=== PATIENT | male | born 1955 | race Two or more races ===

== ENCOUNTER 2017-02-17 00:44 | Emergency (ER) | payer MEDICAID, OTHER ==
[~2017-02-17] VITALS: Ht 170.2 cm; Wt 86.2 kg
[2017-02-17] MEDS ORDERED: SODIUM CHLORIDE 0.9% 1,000 ML IV ONE (00:49)
[2017-02-17 00:51] VITALS: BP 131/93
[2017-02-17 01:22] LABS: Basophils # (auto) 0 uL; Eosinophils # (auto) 0 uL; Hemoglobin 16.8 g/dL (13.5-17.5); Lymphocytes # (auto) 1.5 uL; Mean Corpuscular Hemoglobin 29.8 pg (28.0-32.0); Mean Corpuscular Hgb Conc. 33.6 g/dL (32.0-36.0); Mean Corpuscular Volume 88.6 fL (80.0-100.0); Mean Platelet Volume 8.3 fL (7.4-10.4); Monocytes # (auto) 0.4 uL; Monocytes % (auto) 4.5 % (0.0-12.0); Neutrophils # (auto) 7.3 uL; Neutrophils % (auto) 79.5 % (37.0-80.0); Platelet Count (auto) 319 10^3/uL (140-450); White Blood Cell 9.2 10^3/uL (4.4-10.8)
[2017-02-17 01:30] LABS: Albumin 4.3 g/dL (3.4-5.0); BUN/Creatinine Ratio 22.9; Potassium 4.5 mmol/L (3.5-5.1)
[2017-02-17 01:32] LABS: Bilirubin, Total 0.8 mg/dL (0.2-1.0)
[2017-02-17 03:46] LABS: Urine Bilirubin Negative (Negative); Urine Blood Negative /uL (Negative); Urine Color Yellow (Yellow); Urine Glucose Normal (Normal); Urine Mucus FEW (None Seen); Urine Nitrite Negative (Negative); Urine RBC 1 /hpf (0 - 3); Urine Urobilinogen Normal (Negative)
[2017-02-17 03:47] LABS: Urine Ketone 2+ (Negative)
== END 2017-02-17 04:27 | disposition left against medical advice (07) ==
LOC: ER 00:44
DX: R11.2 Nausea with vomiting, unspecified (principal); R19.7 Diarrhea, unspecified; Z53.21 Procedure and treatment not carried out due to patient leaving prior to being seen by health care provider
CPT/HCPCS: 36415; 80053; 81001; 85025

== ENCOUNTER 2020-07-02 06:14 | Inpatient (IN) | payer OTHER ==
[~2020-07-02] VITALS: Ht 170.2 cm; Wt 88.0 kg
[~2020-07-02 06:14] MED LIST: ALEN1TAB32 PO; CALC1TAB53 PO; SIMV10TA84 PO
[2020-07-02] MEDS ORDERED: LIDOCAINE W/ EPINEPHRINE 1 % INJ 30ML ONE (07:03)
[2020-07-02] MEDS ORDERED: BUPIVACAINE 0.25% INJ 50ML VIAL ONE (07:03)
[2020-07-02] MEDS ORDERED: cefOXitin 2GM/100ML 100 ML IV ONE (07:50)
[2020-07-02] MEDS ORDERED: LIDOCAINE 1% (LOCAL ANESTH.) PF 5ml SDV ONE (07:54)
[2020-07-02] MEDS ORDERED: SUCCINYLCHOLINE CHLORIDE 20 MG/ML 10ML VIAL IV ONE (07:55)
[2020-07-02] MEDS ORDERED: MIDAZOLAM HCL 1MG/1ML-2 ML VIAL ONE ×2 (08:00→11:36)
[2020-07-02] MEDS ORDERED: METOCLOPRAMIDE HCL 5MG/ml INJ 2ml VIAL ONE ×2 (08:00→11:38)
[2020-07-02] MEDS ORDERED: ETOMIDATE (2MG/ML) 20ML VIAL IV ONE ×2 (08:03→11:41)
[2020-07-02] MEDS ORDERED: ROCURONIUM 10MG/ML 10ML VIAL IV ONE ×3 (08:04→11:38)
[2020-07-02] MEDS ORDERED: LABETALOL HCL 5 MG/ML ML 20ML VIAL IV ONE (08:12)
[2020-07-02] MEDS ORDERED: fentaNYL CITRATE 100 MCG/2 ML VL ONE ×2 (08:13→11:55)
[2020-07-02] MEDS ORDERED: HYDROmorphone HCL 2 MG/ML VL IV PRN ×2 (08:15→10:45)
[2020-07-02] MEDS ORDERED: ONDANSETRON HCL 4 MG/2 ML VIAL IV PRN ×2 (08:15→10:45)
[2020-07-02] MEDS ORDERED: hydrALAZINE HCL 20 MG/ML VL IV PRN (08:15)
[2020-07-02] MEDS ORDERED: NALOXONE HCL 0.4 MG/ML VIAL IV PRN (08:15)
[2020-07-02] MEDS ORDERED: MEPERIDINE HCL (25 MG/ML) 1ML VIAL ONE ×2 (10:15→12:21)
[2020-07-02] MEDS ORDERED: GLYCOPYRROLATE 0.2 MG/ML 1ML VIAL ONE (10:37)
[2020-07-02] MEDS ORDERED: NEOSTIGMINE 1 MG/ML INJ (10mg/10ML VIAL) ONE (10:37)
[2020-07-02] MEDS ORDERED: NITROGLYCERIN 0.4 MG SL TAB SL PRN (10:45)
[2020-07-02] MEDS ORDERED: diphenhdrAMINE HCL 50 MG/1 ML VL IV PRN (10:45)
[2020-07-02] MEDS ORDERED: MORPHINE SULF INJ 2 MG/ML SYRINGE 1ML IV PRN (10:45)
[2020-07-02 11:04] LABS: Calcium 8.3 mg/dL (8.5-10.1); Potassium 3.5 mmol/L (3.5-5.1)
[2020-07-02] MEDS: HYDROmorphone HCL 2 MG/ML VL IV PRN ×2 (11:15→11:30)
[2020-07-02] MEDS ORDERED: hydrALAZINE HCL 20 MG/ML VL ONE (12:23)
[2020-07-02] MEDS: D5W/SOD CHL 0.45% 1,000 ML IV SCH ×2 (17:58→18:45)
--- NOTE | 2020-07-02 20:30 | NUR ---
Telemetry admit from ER TAMIKO MENCHACA admitted to Telemetry unit after SBAR received from PACU. Patient oriented to GEE VANN, RN primary RN, unit, room, bed, and unit policies regarding patient care and visiting hours. Patient now on continuous telemetry monitoring, tele box #55 and telemetry reading on arrival to unit is NSR 90. All questions and concerns addressed, patient verbalized understanding. Pt resting comfortably in bed. Encouraged to call for help if needs assistance. Call bey within reach. Bed alarm on. Will continue to monitor.
[2020-07-02] MEDS ORDERED: PRAVASTATIN SODIUM 20 MG TAB PO SCH (22:00)
[2020-07-02 23:40] VITALS: BP 135/82
[2020-07-03] MEDS: D5W/SOD CHL 0.45% 1,000 ML IV SCH ×2 (02:45→09:23)
[2020-07-03 05:00] VITALS: BP 119/75
[2020-07-03] MEDS: ACETAMINOPHEN/CODEINE#3 (300/30mg) TAB PO PRN ×3 (06:02→16:48)
[2020-07-03 07:45] VITALS: BP 117/72
--- NOTE | 2020-07-03 07:45 | NUR ---
Patient resting quietly in bed with complaint of mild pain. Assessment done. Patient states that he wanted pain medication after eating breakfast. Patient stable at this time.
[2020-07-03 09:00] VITALS: BP 117/72
--- NOTE | 2020-07-03 09:24 | NUR ---
New IVF bag started. Patient resting in bed with complaint of 5/10 abdominal pain. Advised that next pain med due in 20 mins. Will medicate at that time. Patient stable.
[2020-07-03 09:44] LABS: Basophils # (auto) 0 10 ^3/uL (0-0.2); Basophils % (auto) 0.1 % (0.0-2.0); Eosinophils # (auto) 0 10 ^3/uL (0-0.8); Hemoglobin 14.8 g/dL (13.5-17.5); Lymphocytes # (auto) 1.1 10 ^3/uL (0.4-5.4); Lymphocytes % (auto) 14.3 % (10.0-50.0); Mean Corpuscular Hemoglobin 29.7 pg (28.0-32.0); Mean Corpuscular Hgb Conc. 32.9 g/dL (32.0-36.0); Mean Corpuscular Volume 90.2 fL (80.0-100.0); Monocytes # (auto) 0.6 10 ^3/uL (0-1.3); Monocytes % (auto) 8.4 % (0.0-12.0); Neutrophils # (auto) 5.8 10 ^3/uL (1.6-8.6); Neutrophils % (auto) 77.2 % (37.0-80.0); Nucleated Red Blood Cells % 0.1 %; Platelet Count (auto) 190 10^3/uL (140-450); Red Blood Cells 4.99 10^6/uL (4.5-5.90); Red Cell Distribution Width 13.7 % (11.8-14.3); White Blood Cell 7.5 10^3/uL (4.4-10.8)
--- NOTE | 2020-07-03 09:50 | NUR ---
Patient medicated for 5/10 abdominal pain. Patient stable at this time.
[2020-07-03 10:03] LABS: Calcium 7.9 mg/dL (8.5-10.1); Potassium 3.7 mmol/L (3.5-5.1)
--- NOTE | 2020-07-03 10:15 | NUR ---
Patient ambulating with walker assist in hallway with PRINCE Hernandez. Ambulated back to room and now sitting in chair at bedside. No distress noted; no complaint of pain. Patient stable.
--- NOTE | 2020-07-03 10:55 | NUR ---
Patient ambulated with PRINCE Hernandez in hallway and then back to bed. Patient stable.
--- NOTE | 2020-07-03 11:46 | NUR ---
Scheduled IV abx given per order. Patient resting in bed; talking on cell phone. Patient stable at this time.
[2020-07-03 13:00] VITALS: BP 125/74
--- NOTE | 2020-07-03 16:38 | NUR ---
Assessment Patient is a 64-year-old male who is alert and oriented. Prior to admission patient lived home with family and functioned independently. Per patient he can care for his own ADL's. Per patient he does not have any medical equipment now. Per patient he will return to his prior living arrangement post discharge and family will transport him home. Advised patient there is a social service consult for home health and walker. Informed patient clinical information will be faxed to [facility] health and . Informed patient he has the right to participate in all discharge planning. Patient verbalized understanding and agreed to discharge plan. Per Hannah with [facility] patient has been accepted and service to start within 24-48hrs upon d/c day. Per Sola with [facility] walker will be deliver to bedside between 4:30-5:30. Faxed clinical information to [facility] requesting authorization. Per Marci with [facility] authorization will be faxed to [facility] and . Informed MICHAEL Gauthier. Addendum: 07/03/20 at 1644 by ONOFRE MARTÍNEZ Amended: Links added.
--- NOTE | 2020-07-03 16:48 | NUR ---
Patient ambulated with walker in hallway and back to bed. Medicated for 6/10 abdominal pain. Patient stable.
[2020-07-03 17:00] VITALS: BP 135/78
--- NOTE | 2020-07-03 17:50 | NUR ---
Patient resting comfortably in bed with no distress noted.
--- NOTE | 2020-07-03 18:25 | NUR ---
Patient ambulating in hallway with walker assist.
[2020-07-03 18:30] VITALS: BP 135/78
[2020-07-03] MEDS ORDERED: PNEUMOCOCCAL VACC POLYS 25 MCG/0.5 ML VIAL IM ONE (18:45)
[2020-07-03] MEDS ORDERED: INFLUENZA QUAD 2020-2021 0.5 ML SYRG IM ONE (18:45)
--- NOTE | 2020-07-03 18:45 | NUR ---
Patient unable to pass gas, despite ambulating in hallway several times. Paged Dr. Beck and left message to inform of patient's condition and to request simethicone. Awaiting call back.
[2020-07-03] MEDS ORDERED: SIMETHICONE 80 MG CHEWABLE TABLET PO ONE (19:30)
--- NOTE | 2020-07-03 20:30 | NUR ---
Regular Discharge Patient is to follow up with PCP Dr Islas. Doctor is out of office at this time. Patient states they will schedule their own appointment. Two IV DC'd with clean technique, both catheters fully intact. Pressure dressing applied to sites. Patient tolerated procedure well. Discharged with aftercare instructions per MD.
[2020-07-04] MEDS ORDERED: PNEUMOCOCCAL VACC POLYS 25 MCG/0.5 ML VIAL IM SCH (10:00)
[2020-07-04] MEDS ORDERED: INFLUENZA QUAD 2020-2021 0.5 ML SYRG IM SCH (10:00)
== END 2020-07-03 20:30 | disposition home or self-care (01) | DRG 708 ==
LOC: OVERFLOW 06:14 → EDSTATUS 07:00 → TELE-WESTW 20:15
PROVIDERS: ADMIT Urology; ATTEND Internal Medicine
PROC: 07BC4ZZ Excision of Pelvis Lymphatic, Percutaneous Endoscopic Approach (ICD-10-PCS; 2020-07-02)
PROC: 8E0W4CZ Robotic Assisted Procedure of Trunk Region, Percutaneous Endoscopic Approach (ICD-10-PCS; 2020-07-02)
PROC: 0VT04ZZ Resection of Prostate, Percutaneous Endoscopic Approach (ICD-10-PCS; principal; 2020-07-02 07:57)
DX: C61 Malignant neoplasm of prostate (principal); E78.00 Pure hypercholesterolemia, unspecified; M81.0 Age-related osteoporosis without current pathological fracture; Z20.828 Contact with and (suspected) exposure to other viral communicable diseases; Z82.49 Family history of ischemic heart disease and other diseases of the circulatory system; Z79.899 Other long term (current) drug therapy
CPT/HCPCS: 36415; 80048; 85025; 86850; 86900; 86901; G0378; J0330; J0694; J2250; J2405; J3490; J7060